=== PATIENT | female | born 1965 | race Two or more races ===

== ENCOUNTER 2019-09-29 15:39 | Emergency (ER) | payer OTHER, SELFPAY ==
[2019-09-29 16:06] VITALS: BP 134/79; PULSE 77; RESP 16; TEMP 37.2; O2SAT 99
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
== END 2019-09-29 16:33 | disposition home or self-care (01) ==
PROVIDERS: Emergency Provider Nurse Practitioner; PCP General Practice
DX: S13.4XXA Sprain of ligaments of cervical spine, initial encounter (principal); V43.52XA Car driver injured in collision with other type car in traffic accident, initial encounter
CPT/HCPCS: 99203; G0463